=== PATIENT | female | born 1975 | race Caucasian/White ===

== ENCOUNTER 2021-12-01 09:34 | Inpatient (IN) ==
[2021-12-01] MEDS ORDERED: *HR* Dextrose 50 % in Water (Syg) 50 ML SYRINGE ONE ×2 (10:08→19:03)
[2021-12-01] MEDS ORDERED: *HR* Dextrose 50 % in Water (Syg) 50 ML SYRINGE IVP ONE ×3 (10:12→18:45)
[2021-12-01 13:02] LABS: ABG Base Excess -14 mEq/L (-2 to 3); ABG HCO3 12 mEq/L (21-27); ABG Oxygen Saturation 96 % (95-98); ABG PCO2 26 mmHg (35-45); ABG PH 7.27 pH Units (7.32-7.45); ABG PO2 87 mmHg (85-104); ABG TCO2 13 mEq/L (20-26)
[2021-12-01 14:06] LABS: Basophils % 0.2 %; Eosinophils % 0.5 %; Hematocrit 28.1 % (35.3-44.9); Hemoglobin 8.9 g/dL (11.5-15.4); Immature Granulocytes % 0.5 % (0-4); Lymphocytes # 0.8 K/mcL (0.6-4.6); Lymphocytes % 8.7 %; Mean Corpuscular HGB Conc 31.7 g/dL (31.6-35.5); Mean Corpuscular Hemoglobin 30.3 pg (28.0-33.3); Mean Corpuscular Volume 95.6 fL (83.0-100.0); Mean Platelet Volume 9.3 fL (9.4-12.4); Monocytes # 0.6 K/mcL (0.0-1.3); Monocytes % 7.1 %; Neutrophils # 7.1 K/mcL (1.6-8.9); Platelet Count 213 K/mcL (140-400); Red Blood Count 2.94 M/mcL (3.82-4.97); Red Cell Distribution Width 15.9 % (11.5-14.5); White Blood Count 8.6 K/mcL (4.3-11.1)
[2021-12-01 14:31] LABS: BUN/Creatinine Ratio 12 (6-26); Blood Urea Nitrogen 100 mg/dL (6-20); Carbon Dioxide 14 mEq/L (23-29); Chloride 98 mEq/L (98-107); Glucose 89 mg/dL (70-105); Osmolality,Calculated 297 (280-300); Potassium 7.9 mEq/L (3.5-5.1); Sodium 128 mEq/L (136-145); Troponin I < 0.03 ng/mL (< 0.04)
[2021-12-01] MEDS ORDERED: Insulin Human Regular 10 UNIT in 0.9 % Sodium Chloride 10 ML IV ONE ×2 (14:33→18:45)
[2021-12-01] MEDS ORDERED: Sodium Bicarbonate 50 MEQ/50 ML VIAL IVP ONE (14:33)
[2021-12-01] MEDS ORDERED: SODIUM ZIRCONIUM CYCLOSILICATE 5 GM POWD.PACK PO ONE (14:45)
[2021-12-01] MEDS ORDERED: Calcium Gluconate 1,000 MG/10 ML VIAL IVP ONE ×2 (15:15→18:45)
[2021-12-01] MEDS ORDERED: Naloxone 0.4 MG/ML INJ IVP PRN (15:28)
[2021-12-01] MEDS ORDERED: Ondansetron ODT 4 MG TAB.RAPDIS SL PRN (15:28)
[2021-12-01 16:17] LABS: Alanine Aminotransferase 22 Units/L (7-52); Albumin 4.2 g/dL (3.5-5.7); Albumin/Globulin Ratio 1.4 (1.1-2.2); Alkaline Phosphatase 99 Units/L (34-104); Aspartate Amino Transferase 32 Units/L (13-39); Bilirubin,Direct 0.1 mg/dL (0.0-0.2); Bilirubin,Indirect 0.3 mg/dL (0.0-1.0); Bilirubin,Total 0.4 mg/dL (0.3-1.0); Creatine Kinase 195 Units/L (30-223); Ethanol < 10 mg/dL (Less than 10); Phosphorous 9.2 mg/dL (2.7-4.5); Total Protein 7.2 g/dL (6.4-8.9)
[2021-12-01] MEDS ORDERED: D5% in Water 1,000 ML IVC PRN (16:39)
[2021-12-01] MEDS ORDERED: Dextrose Gel 15 GM/37.5 ML TUBE PO PRN ×2 (16:39)
[2021-12-01] MEDS ORDERED: D10% in Water 500 ML ONE (17:29)
[2021-12-01 18:29] LABS: Calcium 8.1 mg/dL (8.6-10.3)
[2021-12-01] MEDS ORDERED: Sodium Bicarbonate 50 MEQ/50 ML VIAL ONE (19:02)
[2021-12-01] MEDS: D10% in Water 500 ML IVC SCH (22:58)
[2021-12-02 01:15] LABS: Basophils % 0.4 %; Eosinophils # 0.2 K/mcL (0.0-0.6); Eosinophils % 2.8 %; Hematocrit 28.8 % (35.3-44.9); Hemoglobin 9.3 g/dL (11.5-15.4); Immature Granulocytes % 0.1 % (0-4); Lymphocytes # 1.5 K/mcL (0.6-4.6); Lymphocytes % 19.4 %; Mean Corpuscular HGB Conc 32.3 g/dL (31.6-35.5); Mean Corpuscular Hemoglobin 31.3 pg (28.0-33.3); Mean Platelet Volume 9.2 fL (9.4-12.4); Monocytes # 0.9 K/mcL (0.0-1.3); Monocytes % 11.7 %; Neutrophils # 4.9 K/mcL (1.6-8.9); Platelet Count 195 K/mcL (140-400); Red Blood Count 2.97 M/mcL (3.82-4.97); Red Cell Distribution Width 16.1 % (11.5-14.5); Segmented Neutrophils % 65.6 %; White Blood Count 7.5 K/mcL (4.3-11.1)
[2021-12-02 01:23] LABS: Complement C3 123 mg/dL (87-200)
[2021-12-02 01:24] LABS: Calcium 8.4 mg/dL (8.6-10.3); Chol/HDL Ratio 2.3 (0-4.9); Phosphorous 8.7 mg/dL (2.7-4.5)
[2021-12-02 01:27] LABS: INR 1.3; Prothrombin Time 14.8 Seconds (9.4-12.1)
[2021-12-02 01:29] LABS: Activated Partial Thrombo Time 28.6 Seconds (26.0-36.0)
[2021-12-02] MEDS ORDERED: *HR* Dextrose 50 % in Water (Syg) 50 ML SYRINGE IVP ONE (02:46)
[2021-12-02] MEDS ORDERED: Insulin Human Regular 10 UNIT in 0.9 % Sodium Chloride 10 ML IV ONE (02:46)
[2021-12-02] MEDS: SODIUM ZIRCONIUM CYCLOSILICATE 5 GM POWD.PACK PO SCH ×2 (04:48→08:47)
[2021-12-02] MEDS: *HR* Dextrose 50 % in Water (Syg) 50 ML SYRINGE IVP PRN ×2 (04:49→05:44)
[2021-12-02] MEDS: Sodium Bicarbonate 75 MEQ in 0.45 % Sodium Chloride 1,000 ML IVC SCH ×2 (04:51→17:13)
[2021-12-02] MEDS: *HR* Heparin 5,000 UNIT/ML VIAL SQ SCH ×2 (05:05→17:15)
[2021-12-02] MEDS: Insulin LISPRO 300 UNITS/3 ML VIAL SUBQ SCH ×3 (08:48→17:04)
[2021-12-02 09:30] LABS: Calcium 8.2 mg/dL (8.6-10.3); Potassium 5.9 mEq/L (3.5-5.1)
[2021-12-02 09:59] LABS: Vitamin D 25 Hydroxy 50 ng/mL (30-80)
[2021-12-02 10:24] LABS: Hepatitis B Surface Antigen Nonreactive (Nonreactive)
[2021-12-02 10:53] LABS: Hepatitis B Core IgM Nonreactive (Nonreactive); Hepatitis C Virus Antibody Nonreactive (Nonreactive)
[2021-12-02 10:54] LABS: Bacteria,Urine Few per hpf (None-Few); Bilirubin,Urine Moderate (Negative); Blood,Urine Trace (Negative); Clarity,Urine Turbid (Clear); Color,Urine Yellow (Yellow); Glucose,Urine (UA) Normal (Normal); Hyaline Casts,Urine Few per lpf (None Seen); Ketones,Urine Negative (Negative); Leukocyte Esterase,Urine Negative (Negative); Mucus,Urine Few per lpf (None-Few); Nitrite,Urine Negative (Negative); PH,Urine 5.5 pH Units (5.0-8.0); Protein,Urine 100 mg/dL (Neg-Trace); RBC,Urine 0-3 per hpf (0-3); Specific Gravity,Urine 1.023 (1.010-1.025); Squamous Epithelial Cell,Urine Few per hpf (None-Few); Transitional Epi Cells,Urine Few per hpf (None-Few); Urobilinogen,Urine Normal (Normal); WBC,Urine 0-3 per hpf (0-3)
[2021-12-02 10:55] LABS: Hepatitis A Antibody IgM Nonreactive (Nonreactive)
[2021-12-02 14:54] LABS: Creatinine,Urine 113 mg/dL
[2021-12-02 15:06] LABS: Amphetamine Screen,Urine Negative ng/mL (Cutoff=1000); Barbiturate Screen,Urine Negative ng/mL (Cutoff=200); Benzodiazepines Screen,Urine Positive ng/mL (Cutoff=200); Cannabinoid Screen,Urine Negative ng/mL (Cutoff = 50); Cocaine Screen,Urine Negative ng/mL (Cutoff= 300); Opiate Screen,Urine Negative ng/mL (Cutoff=300); Phencyclidine Screen,Urine Negative ng/mL (Cutoff=25)
[2021-12-02] MEDS: D10% in Water 500 ML IVC SCH (15:24)
[2021-12-02] MEDS: Calcium Acetate 667 MG CAPSULE PO SCH ×2 (15:26→17:15)
[2021-12-02] MEDS: calcitrioL 0.25 MCG CAPSULE PO SCH (15:26)
[2021-12-03] MEDS: D10% in Water 500 ML IVC SCH ×5 (03:29→20:00)
[2021-12-03] MEDS: Sodium Bicarbonate 75 MEQ in 0.45 % Sodium Chloride 1,000 ML IVC SCH ×2 (04:48→12:17)
[2021-12-03] MEDS: *HR* Heparin 5,000 UNIT/ML VIAL SQ SCH ×2 (05:54→16:54)
[2021-12-03] MEDS: SODIUM ZIRCONIUM CYCLOSILICATE 5 GM POWD.PACK PO SCH (08:31)
[2021-12-03] MEDS: calcitrioL 0.25 MCG CAPSULE PO SCH (08:31)
[2021-12-03] MEDS: Calcium Acetate 667 MG CAPSULE PO SCH ×3 (08:31→16:43)
[2021-12-03] MEDS: Insulin LISPRO 300 UNITS/3 ML VIAL SUBQ SCH ×3 (08:33→16:55)
[2021-12-03 10:56] LABS: Albumin 3.9 g/dL (3.5-5.7); Calcium 7.7 mg/dL (8.6-10.3); Phosphorous 7.3 mg/dL (2.7-4.5); Potassium 5.8 mEq/L (3.5-5.1)
[2021-12-03] MEDS: diazePAM 10 MG TABLET PO SCH (12:25)
[2021-12-03] MEDS: BuPROPion XL (24 HR) 150 MG TABLET PO SCH (12:25)
[2021-12-03 12:39] LABS: Basophils % 0.4 %; Eosinophils # 0.3 K/mcL (0.0-0.6); Eosinophils % 3.3 %; Hematocrit 27.8 % (35.3-44.9); Hemoglobin 9.3 g/dL (11.5-15.4); Immature Granulocytes % 0.5 % (0-4); Lymphocytes # 0.7 K/mcL (0.6-4.6); Lymphocytes % 7.4 %; Mean Corpuscular HGB Conc 33.5 g/dL (31.6-35.5); Mean Corpuscular Hemoglobin 31.1 pg (28.0-33.3); Mean Platelet Volume 9.5 fL (9.4-12.4); Monocytes % 10.6 %; Neutrophils # 7.2 K/mcL (1.6-8.9); Platelet Count 211 K/mcL (140-400); Red Blood Count 2.99 M/mcL (3.82-4.97); Red Cell Distribution Width 15.5 % (11.5-14.5); Segmented Neutrophils % 77.8 %; White Blood Count 9.2 K/mcL (4.3-11.1)
[2021-12-03] MEDS: Melatonin 3 MG TABLET PO PRN (21:29)
[2021-12-03] MEDS: rOPINIRole 0.25 MG TABLET PO SCH (21:29)
[2021-12-04 01:52] LABS: Basophils % 0.3 %; Eosinophils # 0.3 K/mcL (0.0-0.6); Eosinophils % 3.3 %; Hematocrit 24.7 % (35.3-44.9); Hemoglobin 8.3 g/dL (11.5-15.4); Immature Granulocytes % 0.4 % (0-4); Lymphocytes # 0.9 K/mcL (0.6-4.6); Lymphocytes % 9.8 %; Mean Corpuscular HGB Conc 33.6 g/dL (31.6-35.5); Mean Corpuscular Hemoglobin 30.5 pg (28.0-33.3); Mean Corpuscular Volume 90.8 fL (83.0-100.0); Mean Platelet Volume 9.3 fL (9.4-12.4); Monocytes % 10.6 %; Neutrophils # 7.3 K/mcL (1.6-8.9); Platelet Count 184 K/mcL (140-400); Red Blood Count 2.72 M/mcL (3.82-4.97); Red Cell Distribution Width 15.2 % (11.5-14.5); Segmented Neutrophils % 75.6 %; White Blood Count 9.6 K/mcL (4.3-11.1)
[2021-12-04 02:24] LABS: Calcium 7.4 mg/dL (8.6-10.3); Potassium 5.4 mEq/L (3.5-5.1)
[2021-12-04] MEDS: Sodium Bicarbonate 75 MEQ in 0.45 % Sodium Chloride 1,000 ML IVC SCH ×2 (02:25→08:23)
[2021-12-04] MEDS: *HR* Heparin 5,000 UNIT/ML VIAL SQ SCH ×2 (06:49→16:05)
[2021-12-04] MEDS: D10% in Water 500 ML IVC SCH ×2 (08:21→22:41)
[2021-12-04] MEDS: SODIUM ZIRCONIUM CYCLOSILICATE 5 GM POWD.PACK PO SCH (08:21)
[2021-12-04] MEDS: FLUoxetine 20 MG CAPSULE PO SCH (08:22)
[2021-12-04] MEDS: calcitrioL 0.25 MCG CAPSULE PO SCH (08:22)
[2021-12-04] MEDS: Calcium Acetate 667 MG CAPSULE PO SCH ×3 (08:22→16:06)
[2021-12-04] MEDS: diazePAM 10 MG TABLET PO SCH (08:22)
[2021-12-04] MEDS: Insulin LISPRO 300 UNITS/3 ML VIAL SUBQ SCH ×3 (08:24→16:06)
[2021-12-04] MEDS: BuPROPion XL (24 HR) 150 MG TABLET PO SCH (08:25)
[2021-12-04] MEDS: rOPINIRole 0.25 MG TABLET PO SCH (22:42)
[2021-12-04] MEDS: Melatonin 3 MG TABLET PO PRN (22:42)
[2021-12-05] MEDS: Sodium Bicarbonate 75 MEQ in 0.45 % Sodium Chloride 1,000 ML IVC SCH ×3 (00:53→22:54)
[2021-12-05 03:30] LABS: Basophils % 0.3 %; Eosinophils # 0.4 K/mcL (0.0-0.6); Eosinophils % 4.4 %; Hematocrit 25.3 % (35.3-44.9); Hemoglobin 8.4 g/dL (11.5-15.4); Immature Granulocytes % 0.5 % (0-4); Lymphocytes # 1.2 K/mcL (0.6-4.6); Mean Corpuscular HGB Conc 33.2 g/dL (31.6-35.5); Mean Corpuscular Hemoglobin 30.4 pg (28.0-33.3); Mean Corpuscular Volume 91.7 fL (83.0-100.0); Mean Platelet Volume 9.2 fL (9.4-12.4); Monocytes # 1.2 K/mcL (0.0-1.3); Monocytes % 12.1 %; Neutrophils # 6.8 K/mcL (1.6-8.9); Platelet Count 179 K/mcL (140-400); Red Blood Count 2.76 M/mcL (3.82-4.97); Red Cell Distribution Width 15.5 % (11.5-14.5); Segmented Neutrophils % 70.7 %; White Blood Count 9.6 K/mcL (4.3-11.1)
[2021-12-05 03:49] LABS: Calcium 7.5 mg/dL (8.6-10.3); Potassium 4.8 mEq/L (3.5-5.1)
[2021-12-05] MEDS: *HR* Heparin 5,000 UNIT/ML VIAL SQ SCH ×2 (05:34→16:38)
[2021-12-05] MEDS: BuPROPion XL (24 HR) 150 MG TABLET PO SCH (08:28)
[2021-12-05] MEDS: diazePAM 10 MG TABLET PO SCH (08:29)
[2021-12-05] MEDS: calcitrioL 0.25 MCG CAPSULE PO SCH (08:29)
[2021-12-05] MEDS: Calcium Acetate 667 MG CAPSULE PO SCH ×3 (08:29→16:38)
[2021-12-05] MEDS: FLUoxetine 20 MG CAPSULE PO SCH (08:30)
[2021-12-05] MEDS: D10% in Water 500 ML IVC SCH ×2 (08:31→19:21)
[2021-12-05] MEDS: SODIUM ZIRCONIUM CYCLOSILICATE 5 GM POWD.PACK PO SCH (08:31)
[2021-12-05] MEDS: Insulin LISPRO 300 UNITS/3 ML VIAL SUBQ SCH ×3 (08:35→16:39)
[2021-12-05 10:48] LABS: Beta Globulin (PEP) 0.74 g/dL (0.48-1.10)
[2021-12-05] MEDS: rOPINIRole 0.25 MG TABLET PO SCH (19:22)
[2021-12-06 01:51] LABS: Basophils % 0.3 %; Eosinophils # 0.4 K/mcL (0.0-0.6); Hematocrit 24.7 % (35.3-44.9); Hemoglobin 8.4 g/dL (11.5-15.4); Immature Granulocytes % 0.5 % (0-4); Lymphocytes # 0.8 K/mcL (0.6-4.6); Lymphocytes % 9.2 %; Mean Corpuscular Hemoglobin 31.2 pg (28.0-33.3); Mean Corpuscular Volume 91.8 fL (83.0-100.0); Monocytes # 0.9 K/mcL (0.0-1.3); Monocytes % 10.2 %; Neutrophils # 6.9 K/mcL (1.6-8.9); Platelet Count 190 K/mcL (140-400); Red Blood Count 2.69 M/mcL (3.82-4.97); Red Cell Distribution Width 15.5 % (11.5-14.5); Segmented Neutrophils % 75.8 %; White Blood Count 9.2 K/mcL (4.3-11.1)
[2021-12-06 02:14] LABS: Calcium 7.5 mg/dL (8.6-10.3); Potassium 4.7 mEq/L (3.5-5.1)
[2021-12-06] MEDS: *HR* Heparin 5,000 UNIT/ML VIAL SQ SCH ×2 (05:48→18:28)
[2021-12-06] MEDS: D10% in Water 500 ML IVC SCH (05:49)
[2021-12-06] MEDS: Calcium Acetate 667 MG CAPSULE PO SCH ×3 (08:29→18:28)
[2021-12-06] MEDS: calcitrioL 0.25 MCG CAPSULE PO SCH (08:29)
[2021-12-06] MEDS: FLUoxetine 20 MG CAPSULE PO SCH (08:29)
[2021-12-06] MEDS: diazePAM 10 MG TABLET PO SCH (08:29)
[2021-12-06] MEDS: BuPROPion XL (24 HR) 150 MG TABLET PO SCH (08:29)
[2021-12-06] MEDS: Insulin LISPRO 300 UNITS/3 ML VIAL SUBQ SCH ×3 (08:33→18:28)
[2021-12-06] MEDS: Sodium Bicarbonate 75 MEQ in 0.45 % Sodium Chloride 1,000 ML IVC SCH ×2 (08:52→20:04)
[2021-12-06] MEDS: rOPINIRole 0.25 MG TABLET PO SCH (20:04)
[2021-12-07] MEDS: *HR* Heparin 5,000 UNIT/ML VIAL SQ SCH ×2 (06:29→17:02)
[2021-12-07] MEDS: FLUoxetine 20 MG CAPSULE PO SCH (07:49)
[2021-12-07] MEDS: Calcium Acetate 667 MG CAPSULE PO SCH ×3 (07:49→17:02)
[2021-12-07] MEDS: Sodium Bicarbonate 75 MEQ in 0.45 % Sodium Chloride 1,000 ML IVC SCH ×2 (07:50→21:09)
[2021-12-07] MEDS: BuPROPion XL (24 HR) 150 MG TABLET PO SCH (07:50)
[2021-12-07] MEDS: calcitrioL 0.25 MCG CAPSULE PO SCH (07:50)
[2021-12-07] MEDS: diazePAM 10 MG TABLET PO SCH (07:52)
[2021-12-07] MEDS: Insulin LISPRO 300 UNITS/3 ML VIAL SUBQ SCH ×3 (07:58→17:02)
[2021-12-07 10:00] LABS: Serine Protease-3 Antibody 2 AU/mL (0-19)
[2021-12-07 10:42] LABS: IFE Reflexed NOT DONE
[2021-12-07 14:16] LABS: Hematocrit 25.5 % (35.3-44.9); Hemoglobin 8.5 g/dL (11.5-15.4); Mean Corpuscular HGB Conc 33.3 g/dL (31.6-35.5); Mean Corpuscular Hemoglobin 31.1 pg (28.0-33.3); Mean Corpuscular Volume 93.4 fL (83.0-100.0); Mean Platelet Volume 8.9 fL (9.4-12.4); Platelet Count 196 K/mcL (140-400); Red Blood Count 2.73 M/mcL (3.82-4.97); Red Cell Distribution Width 15.3 % (11.5-14.5); White Blood Count 7.7 K/mcL (4.3-11.1)
[2021-12-07 16:35] LABS: Calcium 7.9 mg/dL (8.6-10.3); Potassium 4.1 mEq/L (3.5-5.1)
[2021-12-07] MEDS: rOPINIRole 0.25 MG TABLET PO SCH (20:00)
[2021-12-08] MEDS: *HR* Heparin 5,000 UNIT/ML VIAL SQ SCH ×2 (05:35→17:27)
[2021-12-08 06:15] LABS: Basophils % 0.4 %; Eosinophils # 0.3 K/mcL (0.0-0.6); Eosinophils % 3.2 %; Hemoglobin 8.5 g/dL (11.5-15.4); Immature Granulocytes % 0.7 % (0-4); Lymphocytes % 11.8 %; Mean Corpuscular HGB Conc 32.7 g/dL (31.6-35.5); Mean Corpuscular Hemoglobin 30.1 pg (28.0-33.3); Mean Corpuscular Volume 92.2 fL (83.0-100.0); Mean Platelet Volume 9.2 fL (9.4-12.4); Monocytes # 0.9 K/mcL (0.0-1.3); Monocytes % 10.8 %; Neutrophils # 6.2 K/mcL (1.6-8.9); Nucleated Red Blood Cells 0.2 /100 WBC (0); Platelet Count 201 K/mcL (140-400); Red Blood Count 2.82 M/mcL (3.82-4.97); Red Cell Distribution Width 15.4 % (11.5-14.5); Segmented Neutrophils % 73.1 %; White Blood Count 8.4 K/mcL (4.3-11.1)
[2021-12-08 06:27] LABS: Albumin 3.2 g/dL (3.5-5.7); Calcium 8.1 mg/dL (8.6-10.3); Phosphorous 4.4 mg/dL (2.7-4.5); Potassium 4.2 mEq/L (3.5-5.1)
[2021-12-08] MEDS: D10% in Water 500 ML IVC SCH (08:29)
[2021-12-08] MEDS: diazePAM 10 MG TABLET PO SCH (08:45)
[2021-12-08] MEDS: Calcium Acetate 667 MG CAPSULE PO SCH ×3 (08:45→17:27)
[2021-12-08] MEDS: BuPROPion XL (24 HR) 150 MG TABLET PO SCH (08:45)
[2021-12-08] MEDS: FLUoxetine 20 MG CAPSULE PO SCH (08:45)
[2021-12-08] MEDS: calcitrioL 0.25 MCG CAPSULE PO SCH (08:45)
[2021-12-08] MEDS: Insulin LISPRO 300 UNITS/3 ML VIAL SUBQ SCH ×3 (08:50→17:29)
[2021-12-08] MEDS: rOPINIRole 0.25 MG TABLET PO SCH (21:27)
[2021-12-09 02:03] LABS: Basophils % 0.4 %; Eosinophils # 0.3 K/mcL (0.0-0.6); Hemoglobin 8.6 g/dL (11.5-15.4); Immature Granulocytes % 0.9 % (0-4); Lymphocytes # 1.1 K/mcL (0.6-4.6); Lymphocytes % 11.6 %; Mean Corpuscular HGB Conc 33.1 g/dL (31.6-35.5); Mean Corpuscular Hemoglobin 31.3 pg (28.0-33.3); Mean Corpuscular Volume 94.5 fL (83.0-100.0); Mean Platelet Volume 8.9 fL (9.4-12.4); Monocytes # 0.9 K/mcL (0.0-1.3); Monocytes % 9.8 %; Neutrophils # 7.1 K/mcL (1.6-8.9); Platelet Count 199 K/mcL (140-400); Red Blood Count 2.75 M/mcL (3.82-4.97); Red Cell Distribution Width 15.6 % (11.5-14.5); Segmented Neutrophils % 74.3 %; White Blood Count 9.6 K/mcL (4.3-11.1)
[2021-12-09 02:22] LABS: Calcium 8.2 mg/dL (8.6-10.3); Potassium 3.3 mEq/L (3.5-5.1)
[2021-12-09] MEDS: *HR* Heparin 5,000 UNIT/ML VIAL SQ SCH (05:50)
[2021-12-09] MEDS: BuPROPion XL (24 HR) 150 MG TABLET PO SCH (08:29)
[2021-12-09] MEDS: FLUoxetine 20 MG CAPSULE PO SCH (08:29)
[2021-12-09] MEDS: Calcium Acetate 667 MG CAPSULE PO SCH ×2 (08:30→13:14)
[2021-12-09] MEDS: calcitrioL 0.25 MCG CAPSULE PO SCH (08:30)
[2021-12-09] MEDS: Insulin LISPRO 300 UNITS/3 ML VIAL SUBQ SCH ×2 (08:34→13:14)
[2021-12-09] MEDS: diazePAM 10 MG TABLET PO SCH (08:35)
[2021-12-09 11:19] VITALS: BP 124/75; PULSE 68; TEMP 97.2; O2SAT 98
== END 2021-12-09 13:42 | disposition home health service (06) | DRG 425 ==
LOC: EMEROOARM 09:34 → SUATTDRO 20:32 → 3NENU 20:32
PROVIDERS: ADMIT Pharmacist; ATTEND Pharmacist

== ENCOUNTER 2022-01-05 08:23 | Inpatient (IN) ==
[2022-01-05 09:00] LABS: Basophils # 0.1 K/mcL (0.0-0.2); Basophils % 1.1 %; Eosinophils # 0.2 K/mcL (0.0-0.6); Eosinophils % 2.9 %; Hematocrit 32.5 % (35.3-44.9); Hemoglobin 10.2 g/dL (11.5-15.4); Immature Granulocytes % 0.4 % (0-4); Mean Corpuscular HGB Conc 31.4 g/dL (31.6-35.5); Mean Corpuscular Hemoglobin 30.6 pg (28.0-33.3); Mean Corpuscular Volume 97.6 fL (83.0-100.0); Mean Platelet Volume 8.9 fL (9.4-12.4); Monocytes # 0.6 K/mcL (0.0-1.3); Monocytes % 8.1 %; Neutrophils # 5.6 K/mcL (1.6-8.9); Platelet Count 195 K/mcL (140-400); Red Blood Count 3.33 M/mcL (3.82-4.97); Red Cell Distribution Width 15.2 % (11.5-14.5); Segmented Neutrophils % 74.5 %; White Blood Count 7.5 K/mcL (4.3-11.1)
[2022-01-05 09:03] LABS: VBG HCO3 28 mEq/L (21-27); VBG PCO2 53 mmHg (41-51); VBG PH 7.33 pH Units (7.32-7.42); VBG PO2 45 mmHg (25-50)
[2022-01-05 09:12] LABS: INR 1.3; Prothrombin Time 14.6 Seconds (9.4-12.1)
[2022-01-05 09:15] LABS: Activated Partial Thrombo Time 33.9 Seconds (26.0-36.0)
[2022-01-05 09:23] LABS: Alanine Aminotransferase 12 Units/L (7-52); Albumin 3.7 g/dL (3.5-5.7); Albumin/Globulin Ratio 1.3 (1.1-2.2); Alkaline Phosphatase 115 Units/L (34-104); Aspartate Amino Transferase 20 Units/L (13-39); BUN/Creatinine Ratio 15 (6-26); Bilirubin,Direct 0.2 mg/dL (0.0-0.2); Bilirubin,Indirect 0.5 mg/dL (0.0-1.0); Bilirubin,Total 0.7 mg/dL (0.3-1.0); Blood Urea Nitrogen 27 mg/dL (6-20); Calcium 8.5 mg/dL (8.6-10.3); Carbon Dioxide 26 mEq/L (23-29); Chloride 107 mEq/L (98-107); Globulin 2.9 g/dL (2.4-3.5); Glucose 54 mg/dL (70-105); Osmolality,Calculated 299 (280-300); Potassium 3.1 mEq/L (3.5-5.1); Sodium 143 mEq/L (136-145); Total Protein 6.6 g/dL (6.4-8.9); Troponin I < 0.03 ng/mL (< 0.04)
[2022-01-05 10:10] LABS: Bacteria,Urine Moderate per hpf (None-Few); Bilirubin,Urine Negative (Negative); Blood,Urine Small (Negative); Clarity,Urine Turbid (Clear); Color,Urine Yellow (Yellow); Glucose,Urine (UA) Normal (Normal); Ketones,Urine Negative (Negative); Leukocyte Esterase,Urine Large (Negative); Mucus,Urine Few per lpf (None-Few); Nitrite,Urine Positive (Negative); Protein,Urine 30 mg/dL (Neg-Trace); RBC,Urine 0-3 per hpf (0-3); Specific Gravity,Urine 1.013 (1.010-1.025); Squamous Epithelial Cell,Urine Moderate per hpf (None-Few); Transitional Epi Cells,Urine Few per hpf (None-Few); Urobilinogen,Urine Normal (Normal); WBC,Urine 30-50 per hpf (0-3)
[2022-01-05] MEDS ORDERED: Furosemide 40 MG/4 ML VIAL IVP ONE (11:14)
[2022-01-05] MEDS ORDERED: Potassium Chloride Elixir 20 MEQ/15 ML UDC PO ONE (11:29)
[2022-01-05] MEDS ORDERED: cefTRIAXone 1,000 MG in 0.9 % Sodium Chloride 10 ML IVP ONE (11:30)
[2022-01-05] MEDS ORDERED: Naloxone 0.4 MG/ML INJ IVP PRN (11:39)
[2022-01-05] MEDS ORDERED: *HR* Dextrose 50 % in Water (Syg) 50 ML SYRINGE IVP PRN (12:58)
[2022-01-05] MEDS ORDERED: D5% in Water 1,000 ML IVC PRN (12:58)
[2022-01-05] MEDS ORDERED: Dextrose Gel 15 GM/37.5 ML TUBE PO PRN ×2 (12:58)
[2022-01-05] MEDS: Albumin 25% 25gram/100mL 25 GM/100 ML IV.SOLN IVPB SCH ×2 (12:59→23:45)
[2022-01-05] MEDS: Insulin LISPRO 300 UNITS/3 ML VIAL SUBQ SCH ×3 (14:20→19:40)
[2022-01-05] MEDS: Furosemide 40 MG/4 ML VIAL IVP SCH (17:39)
[2022-01-06 05:16] LABS: Basophils # 0.1 K/mcL (0.0-0.2); Basophils % 0.9 %; Eosinophils # 0.2 K/mcL (0.0-0.6); Eosinophils % 3.1 %; Hematocrit 28.4 % (35.3-44.9); Hemoglobin 8.8 g/dL (11.5-15.4); Immature Granulocytes % 0.1 % (0-4); Lymphocytes # 1.1 K/mcL (0.6-4.6); Lymphocytes % 16.9 %; Mean Corpuscular Hemoglobin 30.2 pg (28.0-33.3); Mean Corpuscular Volume 97.6 fL (83.0-100.0); Mean Platelet Volume 9.1 fL (9.4-12.4); Monocytes # 0.6 K/mcL (0.0-1.3); Monocytes % 9.1 %; Neutrophils # 4.7 K/mcL (1.6-8.9); Platelet Count 173 K/mcL (140-400); Red Blood Count 2.91 M/mcL (3.82-4.97); Red Cell Distribution Width 15.2 % (11.5-14.5); Segmented Neutrophils % 69.9 %; White Blood Count 6.7 K/mcL (4.3-11.1)
[2022-01-06 05:36] LABS: Calcium 8.6 mg/dL (8.6-10.3); Magnesium 1.5 mg/dL (1.6-2.6); Phosphorous 3.9 mg/dL (2.7-4.5); Potassium 3.3 mEq/L (3.5-5.1)
[2022-01-06] MEDS: Insulin LISPRO 300 UNITS/3 ML VIAL SUBQ SCH ×4 (08:12→20:20)
[2022-01-06] MEDS ORDERED: diazePAM 10 MG TABLET PO PRN (08:14)
[2022-01-06] MEDS ORDERED: hydrOXYzine pamoate 25 MG CAPSULE PO PRN (08:14)
[2022-01-06] MEDS: cefTRIAXone 1,000 MG in 0.9 % Sodium Chloride 10 ML IVP SCH (08:17)
[2022-01-06] MEDS: Furosemide 40 MG/4 ML VIAL IVP SCH ×2 (08:19→16:17)
[2022-01-06] MEDS: FLUoxetine 20 MG CAPSULE PO SCH (08:46)
[2022-01-06] MEDS: BuPROPion XL (24 HR) 150 MG TABLET PO SCH (08:47)
[2022-01-06] MEDS: Aspirin Enteric Coated 81 MG Tablet PO SCH (08:47)
[2022-01-06] MEDS ORDERED: allopurinoL 100 MG TABLET PO SCH (09:00)
[2022-01-06] MEDS ORDERED: Furosemide 40 MG/4 ML VIAL IVP SCH (09:00)
[2022-01-06] MEDS: Albumin 25% 25gram/100mL 25 GM/100 ML IV.SOLN IVPB SCH ×2 (11:55→23:32)
[2022-01-06] MEDS: Insulin DETEMIR 100 UNIT/ML X5UNITS SUBQ SCH ×2 (20:58→21:02)
[2022-01-06] MEDS: rOPINIRole 0.25 MG TABLET PO SCH (20:59)
[2022-01-06] MEDS: allopurinoL 100 MG TABLET PO SCH (20:59)
[2022-01-07 02:23] LABS: Basophils % 0.5 %; Eosinophils # 0.2 K/mcL (0.0-0.6); Eosinophils % 2.3 %; Hematocrit 29.2 % (35.3-44.9); Hemoglobin 8.9 g/dL (11.5-15.4); Immature Granulocytes % 0.4 % (0-4); Mean Corpuscular HGB Conc 30.5 g/dL (31.6-35.5); Mean Corpuscular Hemoglobin 29.6 pg (28.0-33.3); Mean Platelet Volume 9.6 fL (9.4-12.4); Monocytes # 0.7 K/mcL (0.0-1.3); Monocytes % 9.1 %; Neutrophils # 5.7 K/mcL (1.6-8.9); Platelet Count 163 K/mcL (140-400); Red Blood Count 3.01 M/mcL (3.82-4.97); Red Cell Distribution Width 15.2 % (11.5-14.5); Segmented Neutrophils % 74.7 %; White Blood Count 7.7 K/mcL (4.3-11.1)
[2022-01-07 02:42] LABS: Calcium 8.7 mg/dL (8.6-10.3); Magnesium 1.7 mg/dL (1.6-2.6); Phosphorous 3.4 mg/dL (2.7-4.5); Potassium 3.6 mEq/L (3.5-5.1)
[2022-01-07] MEDS: Insulin LISPRO 300 UNITS/3 ML VIAL SUBQ SCH ×4 (09:05→20:32)
[2022-01-07] MEDS: BuPROPion XL (24 HR) 150 MG TABLET PO SCH (09:11)
[2022-01-07] MEDS: Aspirin Enteric Coated 81 MG Tablet PO SCH (09:11)
[2022-01-07] MEDS: cefTRIAXone 1,000 MG in 0.9 % Sodium Chloride 10 ML IVP SCH (09:11)
[2022-01-07] MEDS: FLUoxetine 20 MG CAPSULE PO SCH (09:11)
[2022-01-07] MEDS: Furosemide 40 MG/4 ML VIAL IVP SCH ×2 (09:12→17:33)
[2022-01-07] MEDS: Albumin 25% 25gram/100mL 25 GM/100 ML IV.SOLN IVPB SCH (12:14)
[2022-01-07] MEDS: rOPINIRole 0.25 MG TABLET PO SCH (21:12)
[2022-01-07] MEDS: allopurinoL 100 MG TABLET PO SCH (21:13)
[2022-01-07] MEDS: Insulin DETEMIR 100 UNIT/ML X5UNITS SUBQ SCH (21:14)
[2022-01-08] MEDS: Albumin 25% 25gram/100mL 25 GM/100 ML IV.SOLN IVPB SCH ×2 (00:35→11:16)
[2022-01-08 02:10] LABS: Magnesium 1.6 mg/dL (1.6-2.6); Phosphorous 3.1 mg/dL (2.7-4.5); Potassium 3.2 mEq/L (3.5-5.1)
[2022-01-08] MEDS: Insulin LISPRO 300 UNITS/3 ML VIAL SUBQ SCH ×4 (07:19→20:29)
[2022-01-08] MEDS: cefTRIAXone 1,000 MG in 0.9 % Sodium Chloride 10 ML IVP SCH (07:44)
[2022-01-08] MEDS: Aspirin Enteric Coated 81 MG Tablet PO SCH (07:44)
[2022-01-08] MEDS: FLUoxetine 20 MG CAPSULE PO SCH (07:44)
[2022-01-08] MEDS: BuPROPion XL (24 HR) 150 MG TABLET PO SCH (07:44)
[2022-01-08] MEDS: Furosemide 40 MG/4 ML VIAL IVP SCH ×2 (07:45→16:30)
[2022-01-08] MEDS: allopurinoL 100 MG TABLET PO SCH (20:28)
[2022-01-08] MEDS: rOPINIRole 0.25 MG TABLET PO SCH (20:28)
[2022-01-08] MEDS: Insulin DETEMIR 100 UNIT/ML X5UNITS SUBQ SCH (20:29)
[2022-01-09] MEDS: Albumin 25% 25gram/100mL 25 GM/100 ML IV.SOLN IVPB SCH ×2 (00:35→11:45)
[2022-01-09 02:04] LABS: Calcium 9.1 mg/dL (8.6-10.3); Potassium 3.8 mEq/L (3.5-5.1)
[2022-01-09] MEDS: cefTRIAXone 1,000 MG in 0.9 % Sodium Chloride 10 ML IVP SCH (08:18)
[2022-01-09] MEDS: BuPROPion XL (24 HR) 150 MG TABLET PO SCH (08:18)
[2022-01-09] MEDS: Aspirin Enteric Coated 81 MG Tablet PO SCH (08:18)
[2022-01-09] MEDS: FLUoxetine 20 MG CAPSULE PO SCH (08:18)
[2022-01-09] MEDS: Furosemide 40 MG/4 ML VIAL IVP SCH ×2 (08:19→17:52)
[2022-01-09] MEDS: Insulin LISPRO 300 UNITS/3 ML VIAL SUBQ SCH ×4 (08:19→20:48)
[2022-01-09] MEDS: polyethylene glycoL 3350 17 GM POWD.PACK PO PRN (08:48)
[2022-01-09] MEDS: rOPINIRole 0.25 MG TABLET PO SCH (20:59)
[2022-01-09] MEDS: allopurinoL 100 MG TABLET PO SCH (20:59)
[2022-01-09] MEDS: Insulin DETEMIR 100 UNIT/ML X5UNITS SUBQ SCH (21:00)
[2022-01-10] MEDS: Albumin 25% 25gram/100mL 25 GM/100 ML IV.SOLN IVPB SCH (01:00)
[2022-01-10 03:32] LABS: Calcium 9.3 mg/dL (8.6-10.3); Potassium 3.8 mEq/L (3.5-5.1)
[2022-01-10] MEDS: Insulin LISPRO 300 UNITS/3 ML VIAL SUBQ SCH ×4 (08:34→20:25)
[2022-01-10] MEDS: BuPROPion XL (24 HR) 150 MG TABLET PO SCH (09:53)
[2022-01-10] MEDS: Aspirin Enteric Coated 81 MG Tablet PO SCH (09:53)
[2022-01-10] MEDS: cefTRIAXone 1,000 MG in 0.9 % Sodium Chloride 10 ML IVP SCH (09:53)
[2022-01-10] MEDS: FLUoxetine 20 MG CAPSULE PO SCH (09:53)
[2022-01-10] MEDS: polyethylene glycoL 3350 17 GM POWD.PACK PO PRN (09:58)
[2022-01-10] MEDS: Furosemide 40 MG/4 ML VIAL IVP SCH ×2 (09:58→17:54)
[2022-01-10] MEDS: Torsemide 20 MG TABLET PO SCH (18:18)
[2022-01-10] MEDS: Insulin DETEMIR 100 UNIT/ML X5UNITS SUBQ SCH (20:25)
[2022-01-10] MEDS: rOPINIRole 0.25 MG TABLET PO SCH (21:16)
[2022-01-10] MEDS: allopurinoL 100 MG TABLET PO SCH (21:17)
[2022-01-11 06:42] LABS: Potassium 3.9 mEq/L (3.5-5.1)
[2022-01-11 07:33] VITALS: BP 158/79; PULSE 69; TEMP 98; O2SAT 94
[2022-01-11] MEDS: FLUoxetine 20 MG CAPSULE PO SCH (09:26)
[2022-01-11] MEDS: BuPROPion XL (24 HR) 150 MG TABLET PO SCH (09:27)
[2022-01-11] MEDS: Aspirin Enteric Coated 81 MG Tablet PO SCH (09:27)
[2022-01-11] MEDS: cefTRIAXone 1,000 MG in 0.9 % Sodium Chloride 10 ML IVP SCH (09:27)
[2022-01-11] MEDS: Insulin LISPRO 300 UNITS/3 ML VIAL SUBQ SCH (09:28)
[2022-01-11] MEDS: Torsemide 20 MG TABLET PO SCH (09:30)
== END 2022-01-11 12:10 | disposition home health service (06) | DRG 194 ==
LOC: EMEROOARM 08:23 → 2ANU 08:23 → SUATTDRO 11:44 → 3BNU 12:53 → SUATTDRO 01-07 10:41
PROVIDERS: ADMIT Internal Medicine; ATTEND Registered Nurse